=== PATIENT | male | born 1985 | race Two or more races ===

== ENCOUNTER 2019-08-09 21:30 | Emergency (ER) | payer OTHER ==
[~2019-08-09] VITALS: Ht 162.6 cm; Wt 85.3 kg
--- NOTE | 2019-08-09 21:45 | NUR ---
PT BIB RA WITH C/O ADULT SEIZURES THAT OCCURRED WHILE PATIENT WAS IN THE BATH TUB. THE STATES THAT WHEN SHE WALKED IN TO THE RESTROOM AFTER HEARING A LOUD THUMP, SHE SAW THE PATIENT WAKING UP AND SLUGGISH. PATIENT STATES THAT HE LOSS CONSCIOUSNESS AND HIT HIS HEAD. BUMP NOTED ON THE RIGHT OCCIPITAL REGION. AAOX4. NO SOB. BREATHING EVENLY AND UNLABORED. SEIZURE PRECAUTIONS INITIATED. CONNECTED TO MONITOR
--- NOTE | 2019-08-10 00:31 | NUR ---
Patient discharged to home in stable condition. Written and verbal after care instructions given. Patient verbalizes understanding of instruction.IV removed. Catheter intact and site benign. Pressure and 4x4 applied to site. No bleeding noted. Pt ambulatory with a steady gait
[2019-08-10 00:33] VITALS: BP 120/74
== END 2019-08-10 00:33 | disposition home or self-care (01) ==
LOC: ER 21:30
DX: S00.03XA Contusion of scalp, initial encounter (principal); Z88.0 Allergy status to penicillin; W18.09XA Striking against other object with subsequent fall, initial encounter; Y93.89 Activity, other specified; Y92.89 Other specified places as the place of occurrence of the external cause; Y99.8 Other external cause status
CPT/HCPCS: 70450-TC; 70480-TC